=== PATIENT | male | born 1945 | race Caucasian/White ===

== ENCOUNTER 2016-10-25 15:08 | Emergency (ER) | payer MEDICARE, BC ==
[2016-10-25 15:12] VITALS: BP 162/93
--- NOTE | 2016-10-25 15:18 | EDM.PDOC ---
ED HPI GENERAL MEDICAL PROBLEM - General Chief Complaint: General Stated Complaint: abd pain Time Seen by Provider: 10/25/16 15:10 Source of Information: Reports: Patient, Old records ([facility] chart/EMR) History Limitations: Reports: No limitations - History of Present Illness INITIAL COMMENTS - FREE TEXT/NARRATIVE: Patient drove himself to the emergency room for progressive mostly left lower quadrant abdominal pain with symptoms starting about 10 days ago. He was briefly evaluated at the [facility] in [place] and subsequently referred to this facility for further evaluation with no treatment or testing done in the clinic. He apparently had a fever of 100 in that facility, however is afebrile in our emergency room at this time. He does have a known history of diverticulosis and previous benign hyperplastic colonic polyp diagnosed via colonoscopy in July 2016, however no previous history of diverticulitis. The patient did have a normal bowel movement earlier this morning. No recent history of other abdominal pain, heartburn, nausea, diarrhea, melena, gross hematochezia, or any food intolerance, including fatty foods, etc.. He did tolerate breakfast and lunch today. He does complain of 4/10 pain at this time , however this was about 7 in the past. Onset: gradual Onset Date: 10/13/16 Duration: Chronic, Constant, Getting worse Location: Reports: abdomen Quality: Reports: Sharp, Stabbing Severity: mild Improves with: Reports: None Worsens with: Reports: None Context: Reports: Other (As above) Associated Symptoms: Denies: confusion, chest pain, cough, diaphoresis, fever/ chills, malaise, nausea/vomiting, shortness of breath, weakness Treatments SUPPLY CHAIN GENERALIST: Reports: Other (see below) (None) Bilateral Lower Abdominal Pain Score (Numeric/FACES): 4 - Related Data Allergies Allergy/AdvReac Type Severity Reaction Status Date / Time No Known Allergies Allergy Verified 10/25/16 15:15 Home Meds: Home Meds Amoxicillin/Potassium Clav [Augmentin 875-125 Tablet] 1 each PO BIDMEALS #20 tablet 10/25/16 [Rx] Carbidopa/Levodopa [Carbidopa-Levodopa 25-100 Tab] 1 tab PO BEDTIME 10/25/16 [ History] Glimepiride [Amaryl] 2 mg PO WITHBREAKFAST 10/25/16 [History] Hydrochlorothiazide 25 mg PO DAILY 10/25/16 [History] Leflunomide [Arava] 20 mg PO DAILY 10/25/16 [History] Losartan [Cozaar] 25 mg PO DAILY@1800 10/25/16 [History] Potassium Chloride 10 meq PO DAILY #14 capsule.er 10/25/16 [Rx] Simvastatin [Zocor] 20 mg PO BEDTIME 10/25/16 [History] Zolpidem [Ambien] 10 mg PO BEDTIME PRN 10/25/16 [History] metroNIDAZOLE [Flagyl] 500 mg PO Q8H #30 tablet 10/25/16 [Rx] Past Medical History HEENT History: Reports: Cataract, Hard of hearing, Impaired vision, Other (see below). Denies: Allergic rhinitis, Glaucoma, Macular degeneration, Retinal detachment Other HEENT History: Glasses, bilateral presbycusis with bilateral hearing aids Cardiovascular History: Reports: High cholesterol, Hypertension. Denies: Afib, Aneurysm, Arrhythmia, Blood clots/VTE/DVT, CAD, Heart Failure, Heart murmur, [place] , Syncope Respiratory History: Reports: Sleep apnea, Other (see below). Denies: COPD, Intubation, difficult, Intubation, previous, PE, Pneumothorax Other Respiratory History: compliant with CPAP Gastrointestinal History: Reports: Chronic diarrhea, Colon polyp, Diverticulosis , Hemorrhoids, Irritable bowel syndrome, Other (see below). Denies: Bowel obstruction, Celiac disease, Cholelithiasis, Chronic constipation, Gastritis, GERD, GI bleed, Hepatitis, Helicobacter pylori, Hiatal hernia, Inflammatory bowel disease, Jaundice, Pancreatitis, PUD Other Gastrointestinal History: Diverticulosis with benign polyp of unknown type removed in July 2016 Genitourinary History: Reports: BPH, Retention, urinary, Urinary incontinence, Other (see below). Denies: Acute renal failure, Chronic renal insuffiency, Renal calculus, STD, UTI, recurrent Other Genitourinary History: BPH with PSA elevation and averaging in the 12-13s with multiple previous negative prostate biopsies as below Musculoskeletal History: Reports: Arthritis, Back pain, chronic, Osteoarthritis , RA, Other (see below). Denies: Fracture, Gout, Neck pain, chronic, Osteoporosis, SLE Other Musculoskeletal History: Scoliosis Neurological History: Reports: Other (see below). Denies: Alzheimers disease, Cerebral aneurysms, Concussion, CVA, Headaches, chronic, Head trauma, Migraines , MS, TIA Other Neuro History: Restless leg syndrome from his sleep apnea Psychiatric History: Reports: Other (see below). Denies: Abuse, victim of, ADD , ADHD, Addiction, Alzheimers disease, Dementia, Depression, Developmental delay, Psych Hospitalization(s), Psychosis, PTSD, Suicide attempt, Suicidal ideation Other Psychiatric History: Chronic insomnia Endocrine/Metabolic History: Reports: Diabetes, type II. Denies: Hypothyroidism , Osteoporosis Hematologic History: Denies: Anemia, Blood transfusion(s), Iron deficiency Immunologic History: Denies: AIDS, HIV, SLE Oncologic (Cancer) History: Denies: Basal cell carcinoma, Bladder, Colon, Hodgkin's Lymphoma, Leukemia, Lymphoma, Malignant melanoma, Non-Hodgkin's Lymphoma, Prostate, Squamous cell carcinoma Dermatologic History: Reports: None, Other (see below). Denies: Eczema, Psoriasis Other Dermatologic History: Probable actinic keratosis with no biopsy from left auricle in 2014 with cryotherapy at that time - Infectious Disease History Infectious Disease History: Reports: Chicken pox, Measles, Mumps. Denies: C- difficile, Meningitis, Mononucleosis, MRSA, Pertussis (whooping cough), Rheumatic Fever, Rubella, Scarlet fever, Shingles, TB, VRE - Past Surgical History Head Surgeries/Procedures: Reports: None HEENT Surgical History: Reports: Adenoidectomy, Cataract surgery, Tonsillectomy , Other (see below) Other HEENT Surgeries/Procedures: Bilateral cataract surgery in 2013, [place] teeth extraction x4 at age 48, tonsillectomy and adenoidectomy at age 1, Cardiovascular Surgical History: Reports: None. Denies: Pacer, Varicose, Vascular surgery Respiratory Surgical History: Reports: None. Denies: Lung Biopsies, Thoracentesis GI Surgical History: Reports: Appendectomy, Colonoscopy, EGD, Hernia, inguinal, Polypectomy, Other (see below). Denies: Cholecystectomy, Hernia, abdominal, Hernia repair/other Other GI Surgeries/Procedures: Right inguinal hernia repair in 2006, last colonoscopy in July 2016 with polypectomy of benign lesion at that time, appendectomy at age 16, EGD in about 1999 with fungal gastritis and esophagitis secondary to antibiotic therapy Male Surgical History: Reports: Prostate Biopsy, Other (see below). Denies: Circumcision, TURP-Transurethral resection of prostate, Vasectomy Other Male Surgeries/Procedures: 5 previous prostate biopsies last in 2013 Endocrine Surgical History: Reports: None Neurological Surgical History: Denies: C-Spine, Discectomy, Laminectomy, Lumbar spine, Sacral Spine, Spinal fusion, Vertebroplasty Musculoskeletal Surgical History: Reports: Carpal tunnel, Other (see below). Denies: Amputation, Arthroscopic knee, Arthroscopic procedure, Ganglion cyst, ORIF Other Musculoskeletal Surgeries/Procedures:: Bilateral carpal tunnel release in Oncologic Surgical History: Reports: None Dermatological Surgical History: Reports: Other (see below) Other Dermatological Surgeries/Procedures: Left auricular cryotherapy as above - Past Imaging History Past Imaging History: Reports: CAT scan (CT of the facial bones and sinuses on ), Ultrasound (Last prostate ultrasound in 2015, right upper quadrant abdominal ultrasound on 03/24/10) Social & Family History - Family History Respiratory: Reports: COPD, Other (see below) Other Respiratory Family Hisory: Father with fatal COPD likely secondary to tobacco use at age 82 Oncologic: Reports: Colon, Other (see below) Other Oncologic Family History: Father with colon cancer in his 60s - Tobacco Use Smoking Status *Q: Former Smoker Tobacco Use Within Last Twelve Months: No Years of Tobacco use: 15 Packs/Tins Daily: 1 (Smoked between ages 15 and 31) Month Tobacco Last Used: 1975 Smoking Cessation Information Provided To Patient: No Second Hand Smoke Exposure: No Second Hand Smoke Education Provided: No - Caffeine Use Caffeine Use: Reports: Coffee (12 Cups per day), Soda (1 soda per day). Denies : Energy drinks - Alcohol Use Alcohol Use History: Yes Days Per Week of Alcohol Use: 2 (No previous DWIs, problems with alcohol abuse, etc.) Number of Drinks Per Day: 1 (Usually mixed drinks) Total Drinks Per Week: 2 Alcohol Use Frequency: Socially - Recreational Drug Use Recreational Drug Use: No Drug Use in Last 12 Months: No Recreational Drug Type: Denies: Amphetamines (Speed), Cocaine, Heroin, Inhalants (Glues, Solvents, Aerosols), LSD (Acid), Marijuana/Hashish, Methamphetamine, Morphine - Living Situation & Occupation Living situation: Reports: (1965, 3 children), with family (With ) 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 Denies: malaise , fatigue, diaphoresis, decreased appetite, weight loss, weight gain HEENT: Reports: Glasses, Hearing loss (Stable). Denies: Dental pain, Ear pain, Eye discharge, Eye pain, Sinus problem, Throat pain, Throat swelling, Vertigo, Vision change Respiratory: Denies: Shortness of Breath, Wheezing, Pleuritic Chest Pain, Cough Cardiovascular: Reports: No symptoms. Denies: Chest pain, Blood pressure problem, Claudication, Dyspnea on exertion, Edema, Lightheadedness, Orthopnea, Palpitations, PND, Syncope Endocrine: Reports: high glucose (As above) GI/Abdominal: Reports: Abdominal pain. Denies: Anorexia, Black stool, Bloody stool, Constipation, Diarrhea, Decreased appetite, Distension, Flatus, Hematemesis, Melena, Nausea, Stool incontinence, Vomiting : Reports: incontinence (Stable). Denies: discharge, dysuria, flank pain, frequency, hematuria, pain, urgency, urinary retention Musculoskeletal: Reports: no symptoms. Denies: neck pain, shoulder pain, arm pain, back pain, leg pain Skin: Reports: no symptoms. Denies: jaundice, diaphoresis, bruising, rash, wound Neurological: Reports: No Symptoms. Denies: Confusion, Dizziness, Headache, Numbness, Paresthesia, Tingling, Weakness Psychiatric: Reports: No symptoms. Denies: Agitation, Anxiety, Confusion, Depression, Hallucinations Hematologic/Lymphatic: Reports: no symptoms Immunologic: Reports: no symptoms ED EXAM, GENERAL - Physical Exam Exam: See Below Exam Limited By: No limitations General Appearance: alert, WD/WN, no apparent distress Eye Exam: bilateral eye: EOMI, normal inspection (No nystagmus), PERRL Ears: normal external exam, normal canal, normal TMs, hearing loss (Severe bilateral presbycusis with patient not wearing his hearing aids today) Nose: normal inspection, normal mucosa, no blood Throat/Mouth: Normal inspection, Normal lips, Normal teeth, Normal gums, Normal oropharynx, Normal voice, No airway compromise. No: Dysphagia, Inflammation Head: atraumatic, normocephalic. No: facial swelling, facial tenderness, sinus tenderness Neck: normal inspection, supple, non-tender, full range of motion, carotid bruit (Borderline mild bilateral). No: lymphadenopathy (L), lymphadenopathy (R) , thyromegaly Respiratory/Chest: no respiratory distress, lungs clear, normal breath sounds, no accessory muscle use, chest non-tender Cardiovascular: normal peripheral pulses, regular rate, rhythm, no edema, no gallop, no JVD, no murmur, no rub. No: gallop/S3, gallop/S4, friction rub Peripheral Pulses: 4+: radial (L), radial (R), dorsalis pedis (L), dorsalis pedis (R) GI/Abdominal: normal bowel sounds, no organomegaly, no distention, no abnormal bruit, no mass, rebound (Borderline), tender (Mild left lower quadrant palpation pain). No: guarding (Male) Exam: Deferred Back Exam: normal inspection, full range of motion. No: CVA tenderness (L), CVA tenderness (R), muscle spasm Extremities: normal inspection, normal range of motion, non-tender, no pedal edema, normal capillary refill. No: Jhonathan's Sign Neurological: alert, oriented, CN II-XII intact, normal cognition, normal gait, normal reflexes (Negative Babinski's), no motor/sensory deficits Psychiatric: normal affect, normal mood Skin Exam: Warm, Dry, Intact, Normal color, No rash. No: Diaphoretic, Jaundice , Wound/incision Lymphatic: no adenopathy Course - Vital Signs Last Recorded V/S: Last Vital Signs Temp 36.9 C 10/25/16 15:11 Pulse 97 10/25/16 15:11 Resp 16 10/25/16 15:11 BP 162/93 H 10/25/16 15:11 Pulse Ox 95 10/25/16 15:11 Vital Signs - 24 hr 10/25/16 15:11 Temperature [ 36.9 C Oral] Pulse, 97 Peripheral [ Right Pulse Oximetry] Respiratory 16 Rate Blood Pressure 162/93 H [Left Upper Arm ] O2 Sat by Pulse 95 Oximetry - Orders/Labs/Meds Orders: Active Orders 24 hr Category Date Time Status Peripheral IV Care [RC] . DIRECTED Care 10/25/16 15:20 Active Abdomen Series w Chest 1V [CR] Stat Exams 10/25/16 15:18 Taken CULTURE BLOOD [BC] Stat Lab 10/25/16 15:35 Received CULTURE BLOOD [BC] Stat Lab 10/25/16 15:47 Received CULTURE URINE [RM] Routine Lab 10/25/16 15:35 Received Sodium Chloride 0.9% [Saline Flush] Med 10/25/16 15:20 Active 10 ml FLUSH ASDIRECTED PRN Blood Culture x2 Reflex Set [OM.PC] Urgent Oth 10/25/16 15:18 Ordered Peripheral IV Insertion Adult [OM.PC] Routine Oth 10/25/16 15:19 Ordered Medication Orders Sodium Chloride (Saline Flush) 10 ml FLUSH ASDIRECTED PRN PRN Reason: Keep Vein Open Last Admin: 10/25/16 16:50 Dose: 10 ml Admin: 10/25/16 15:45 Dose: 10 ml Labs: Laboratory Tests 10/25/16 10/25/16 10/25/16 Range/Units 15:35 15:47 15:47 WBC 8.4 (4.0-10.2) K/uL RBC 4.71 (4.33-5.41) M/uL Hgb 13.7 (13.1-16.8) g/dL Hct 41.9 (39.0-49.0) % MCV 89.0 (84.0-98.0) fL MCH 29.1 (28.2-33.3) pg MCHC 32.7 (31.7-36.0) g/dL RDW 14.7 H (11.2-14.1) % Plt Count 189 (150-350) K/uL Neut % (Auto) 69.5 (45.0-80.0) % Lymph % (Auto) 19.6 (10.0-50.0) % [facility] % (Auto) 7.8 (2.0-14.0) % Eos % (Auto) 2.3 (0.0-5.0) % Baso % (Auto) 0.8 (0.0-2.0) % Neut # (Auto) 5.81 (1.40-7.00) K/uL Lymph # (Auto) 1.64 (0.50-3.50) K/uL [facility] # (Auto) 0.65 (0.00-1.00) K/uL Eos # (Auto) 0.19 (0.00-0.50) K/uL Baso # (Auto) 0.07 (0.00-0.20) K/uL PT (9.8-11.7) SEC INR APTT (23.5-30.0) SEC Sodium 138 (136-145) mmol/L Potassium 3.3 L (3.5-5.1) mmol/L Chloride 100 (98-107) mmol/L Carbon Dioxide 28.7 (21.0-32.0) mmol/L BUN 17 (7-18) mg/dL Creatinine 0.98 (0.51-1.17) mg/dL Est Cr Clr Drug Dosing TNP Estimated GFR (MDRD) > 60 mL/min Glucose 231 H (74-106) mg/dL Hemoglobin A1c (4.3-5.7) % Lactic Acid (0.4-2.0) mmol/L Uric Acid 3.6 (2.6-7.2) mg/dL Calcium 9.4 (8.5-10.1) mg/dL Magnesium 2.1 (1.8-2.4) mg/dL Total Bilirubin 0.4 (0.2-1.0) mg/dL AST 11 L (15-37) U/L ALT 27 (12-78) U/L Alkaline Phosphatase 84 (46-116) IU/L Total Protein 6.8 (6.4-8.2) g/dL Albumin 3.6 (3.4-5.0) g/dL Amylase 26 (25-115) U/L Lipase 109 (73-393) U/L Specimen Type Urincc Urine Color Yellow Urine Appearance Clear Urine pH 6.0 (5.0-9.0) Ur Specific Valders 1.015 (1.005-1.030) Urine Protein Negative (NEGATIVE) mg/dL Urine Glucose (UA) 500 H (NEGATIVE) mg/dL Urine Ketones Negative (NEGATIVE) mg/dL Urine Occult Blood Trace-lysed H (NEGATIVE) Urine Nitrite Negative (NEGATIVE) Urine Bilirubin Negative (NEGATIVE) Urine Urobilinogen 0.2 (0.2-1.0) E.U./dL Ur Leukocyte Esterase Negative (NEGATIVE) Urine RBC 0-5 /HPF Urine WBC 0-5 /HPF Ur Epithelial Cells Not seen /LPF Urine Bacteria Not seen (NONE TO FEW) /HPF H. pylori IgG Antibody (NEGATIVE) 10/25/16 10/25/16 10/25/16 Range/Units 15:47 15:47 15:47 WBC (4.0-10.2) K/uL RBC (4.33-5.41) M/uL Hgb (13.1-16.8) g/dL Hct (39.0-49.0) % MCV (84.0-98.0) fL MCH (28.2-33.3) pg MCHC (31.7-36.0) g/dL RDW (11.2-14.1) % Plt Count (150-350) K/uL Neut % (Auto) (45.0-80.0) % Lymph % (Auto) (10.0-50.0) % [facility] % (Auto) (2.0-14.0) % Eos % (Auto) (0.0-5.0) % Baso % (Auto) (0.0-2.0) % Neut # (Auto) (1.40-7.00) K/uL Lymph # (Auto) (0.50-3.50) K/uL [facility] # (Auto) (0.00-1.00) K/uL Eos # (Auto) (0.00-0.50) K/uL Baso # (Auto) (0.00-0.20) K/uL PT 11.2 (9.8-11.7) SEC INR 1.0 APTT 30.6 H (23.5-30.0) SEC Sodium (136-145) mmol/L Potassium (3.5-5.1) mmol/L Chloride (98-107) mmol/L Carbon Dioxide (21.0-32.0) mmol/L BUN (7-18) mg/dL Creatinine (0.51-1.17) mg/dL Est Cr Clr Drug Dosing Estimated GFR (MDRD) mL/min Glucose (74-106) mg/dL Hemoglobin A1c 7.9 H (4.3-5.7) % Lactic Acid 1.1 (0.4-2.0) mmol/L Uric Acid (2.6-7.2) mg/dL Calcium (8.5-10.1) mg/dL Magnesium (1.8-2.4) mg/dL Total Bilirubin (0.2-1.0) mg/dL AST (15-37) U/L ALT (12-78) U/L Alkaline Phosphatase (46-116) IU/L Total Protein (6.4-8.2) g/dL Albumin (3.4-5.0) g/dL Amylase (25-115) U/L Lipase (73-393) U/L Specimen Type Urine Color Urine Appearance Urine pH (5.0-9.0) Ur Specific Val[place] (1.005-1.030) Urine Protein (NEGATIVE) mg/dL Urine Glucose (UA) (NEGATIVE) mg/dL Urine Ketones (NEGATIVE) mg/dL Urine Occult Blood (NEGATIVE) Urine Nitrite (NEGATIVE) Urine Bilirubin (NEGATIVE) Urine Urobilinogen (0.2-1.0) E.U./dL Ur Leukocyte Esterase (NEGATIVE) Urine RBC /HPF Urine WBC /HPF Ur Epithelial Cells /LPF Urine Bacteria (NONE TO FEW) /HPF H. pylori IgG Antibody (NEGATIVE) 10/25/16 Range/Units 15:47 WBC (4.0-10.2) K/uL RBC (4.33-5.41) M/uL Hgb (13.1-16.8) g/dL Hct (39.0-49.0) % MCV (84.0-98.0) fL MCH (28.2-33.3) pg MCHC (31.7-36.0) g/dL RDW (11.2-14.1) % Plt Count (150-350) K/uL Neut % (Auto) (45.0-80.0) % Lymph % (Auto) (10.0-50.0) % [facility] % (Auto) (2.0-14.0) % Eos % (Auto) (0.0-5.0) % Baso % (Auto) (0.0-2.0) % Neut # (Auto) (1.40-7.00) K/uL Lymph # (Auto) (0.50-3.50) K/uL [facility] # (Auto) (0.00-1.00) K/uL Eos # (Auto) (0.00-0.50) K/uL Baso # (Auto) (0.00-0.20) K/uL PT (9.8-11.7) SEC INR APTT (23.5-30.0) SEC Sodium (136-145) mmol/L Potassium (3.5-5.1) mmol/L Chloride (98-107) mmol/L Carbon Dioxide (21.0-32.0) mmol/L BUN (7-18) mg/dL Creatinine (0.51-1.17) mg/dL Est Cr Clr Drug Dosing Estimated GFR (MDRD) mL/min Glucose (74-106) mg/dL Hemoglobin A1c (4.3-5.7) % Lactic Acid (0.4-2.0) mmol/L Uric Acid (2.6-7.2) mg/dL Calcium (8.5-10.1) mg/dL Magnesium (1.8-2.4) mg/dL Total Bilirubin (0.2-1.0) mg/dL AST (15-37) U/L ALT (12-78) U/L Alkaline Phosphatase (46-116) IU/L Total Protein (6.4-8.2) g/dL Albumin (3.4-5.0) g/dL Amylase (25-115) U/L Lipase (73-393) U/L Specimen Type Urine Color Urine Appearance Urine pH (5.0-9.0) Ur Specific Valders (1.005-1.030) Urine Protein (NEGATIVE) mg/dL Urine Glucose (UA) (NEGATIVE) mg/dL Urine Ketones (NEGATIVE) mg/dL Urine Occult Blood (NEGATIVE) Urine Nitrite (NEGATIVE) Urine Bilirubin (NEGATIVE) Urine Urobilinogen (0.2-1.0) E.U./dL Ur Leukocyte Esterase (NEGATIVE) Urine RBC /HPF Urine WBC /HPF Ur Epithelial Cells /LPF Urine Bacteria (NONE TO FEW) /HPF H. pylori IgG Antibody Negative (NEGATIVE) Urine culture and blood cultures x2 are pending Microbiology 10/25/16 16:24 Stool Occult Blood (SAMANTHA) - Final Stool / Feces NEGATIVE OCCULT BLOOD Meds: Medications Generic Name Dose Route Start Last Admin Trade Name Freq PRN Reason Stop Dose Admin Sodium Chloride 10 ml 10/25/16 15:20 10/25/16 16:50 Saline Flush FLUSH 10 ml ASDIRECTED PRN Administration Keep Vein Open Discontinued Medications Generic Name Dose Route Start Last Admin Trade Name Freq PRN Reason Stop Dose Admin Famotidine 40 mg 10/25/16 15:20 10/25/16 15:44 Pepcid IVPUSH 10/25/16 15:21 40 mg ONETIME ONE Administration Ceftriaxone Sodium 1 gm/ 100 mls @ 200 mls/hr 10/25/16 16:22 10/25/16 16:50 Sodium Chloride IV 10/25/16 16:51 200 mls/hr ONETIME ONE Administration Metronidazole 500 mg 10/25/16 16:22 10/25/16 16:50 Flagyl PO 10/25/16 16:23 500 mg ONETIME ONE Administration Pantoprazole Sodium 40 mg 10/25/16 15:20 10/25/16 15:44 Protonix Iv IVPUSH 10/25/16 15:21 40 mg ONETIME ONE Administration - Radiology Interpretation Free Text/Narrative:: Acute abdominal x-ray shows evidence of moderate COPD changes with possible pulmonary hypertension, however no pulmonary infiltrates, cardiomegaly, CHF, free air, ileus, obstruction, fluid levels, intra-abdominal calcifications, etc. Mild to moderate stool with nonspecific bowel gaseous pattern. Mild aortic valve calcification and prominence of the proximal aortic arch. Moderate osteoarthritic changes including mild to moderate scoliosis Departure - Departure Time of Disposition: 17:50 Disposition: Home, Self-Care 01 Preliminary Cause of *Q: sepsis & multi system organ failure Condition: good Clinical Impression: COPD (chronic obstructive pulmonary disease) Abdominal pain Qualifiers: Abdominal location: left lower quadrant Qualified Code(s): R10.32 - Left lower quadrant pain Osteoarthritis Qualifiers: Osteoarthritis location: multiple joints Osteoarthritis type: primary Qualified Code(s): M15.0 - Primary generalized (osteo)arthritis Diverticulosis Qualifiers: Diverticulosis site: diverticulosis of large intestine Diverticulosis bleeding : diverticulosis with bleeding Qualified Code(s): K57.31 - Diverticulosis of large intestine without perforation or abscess with bleeding Hypertension Qualifiers: Hypertension type: essential hypertension Qualified Code(s): I10 - Essential ( primary) hypertension Hyperlipidemia Qualifiers: Hyperlipidemia type: unspecified Qualified Code(s): E78.5 - Hyperlipidemia, unspecified Presbycusis Qualifiers: Laterality: bilateral Qualified Code(s): H91.13 - Presbycusis, bilateral Prescriptions: Amoxicillin/Potassium Clav [Augmentin 875-125 Tablet] 1 each PO BIDMEALS #20 tablet Potassium Chloride 10 meq PO DAILY #14 capsule.er metroNIDAZOLE [Flagyl] 500 mg PO Q8H #30 tablet Instructions: Diverticulitis, [id number], Hypokalemia Referrals: PCP,None [Primary Care Provider] - Forms: ED Department Discharge Additional Instructions: 1. Followup with your regular provider in 7 days as directed for reevaluation and recommended repeat CBC and comprehensive metabolic panel. 2. [place] diet including encouragement of oral fluids such as sports drinks, etc. for 24-48 hours as directed. Advance to strict low-fat, low-cholesterol, diabetic, diverticulosis diet as tolerated thereafter. 3. Continue to observe your blood pressures closely through your regular provider - Problem List & Annotations (1) Abdominal pain SNOMED Code(s): 26596275 Code(s): R10.9 - UNSPECIFIED ABDOMINAL PAIN Status: Acute Priority: High Current Visit: Yes Onset Date: ~10/13/16 Annotation/Comment:: Probable beginning mild diverticulitis with borderline peritonitis. Initial dose of Flagyl given in the emergency room orally with additional IV Rocephin as above. Close followup by regular provider. Note recent colonoscopy in July 2016. Further GI workup and/or referral, including possible CT scan, etc. depending on his clinical course. No leukocytosis currently. H. pylori was negative. IV Protonix and IV Pepcid given as GI prophylaxis Qualifiers: Abdominal location: left lower quadrant Qualified Code(s): R10.32 - Left lower quadrant pain (2) Diverticulosis SNOMED Code(s): 623556700 Code(s): K57.90 - DVRTCLOS OF INTEST, PART UNSP, W/O PERF OR ABSCESS W/O BLEED Status: Chronic Priority: Medium Current Visit: Yes Annotation/ Comment:: As above Qualifiers: Diverticulosis site: diverticulosis of large intestine Diverticulosis bleeding: diverticulosis with bleeding Qualified Code(s): K57.31 - Diverticulosis of large intestine without perforation or abscess with bleeding (3) Hypokalemia SNOMED Code(s): 48127638 Code(s): E87.6 - HYPOKALEMIA Status: Acute Priority: Medium Current Visit: Yes Onset Date: 10/25/16 Annotation/Comment:: Note current hydrochlorothiazide therapy. Initiate low-dose potassium chloride supplementation with close followup by regular provider as per discharge instructions (4) Osteoarthritis SNOMED Code(s): 145506459 Code(s): M19.90 - UNSPECIFIED OSTEOARTHRITIS, UNSPECIFIED SITE Status: Chronic Priority: Medium Current Visit: Yes Annotation/Comment:: Stable by history with additional history of rheumatoid arthritis. Patient is followed by a telecommunications professional Qualifiers: Osteoarthritis location: multiple joints Osteoarthritis type: primary Qualified Code(s): M15.0 - Primary generalized (osteo)arthritis (5) Hypertension SNOMED Code(s): 16783298 Code(s): I10 - ESSENTIAL (PRIMARY) HYPERTENSION Status: Chronic Priority : Medium Current Visit: Yes Annotation/Comment:: Blood pressure somewhat elevated in the emergency room secondary to discomfort. Continue to observe closely by his regular provider Qualifiers: Hypertension type: essential hypertension Qualified Code(s): I10 - Essential (primary) hypertension (6) Hyperlipidemia SNOMED Code(s): 35844919 Code(s): E78.5 - HYPERLIPIDEMIA, UNSPECIFIED Status: Chronic Priority: Medium Current Visit: Yes Annotation/Comment:: Currently under therapy Qualifiers: Hyperlipidemia type: unspecified Qualified Code(s): E78.5 - Hyperlipidemia , unspecified (7) Presbycusis SNOMED Code(s): 94473270 Code(s): H91.10 - PRESBYCUSIS, UNSPECIFIED EAR Status: Chronic Priority: Medium Current Visit: Yes Annotation/Comment:: No hearings aides today Qualifiers: Laterality: bilateral Qualified Code(s): H91.13 - Presbycusis, bilateral (8) COPD (chronic obstructive pulmonary disease) SNOMED Code(s): 60680500 Code(s): J44.9 - CHRONIC OBSTRUCTIVE PULMONARY DISEASE, UNSPECIFIED Status : Chronic Priority: Medium Current Visit: Yes Onset Date: 10/25/16 Annotation/Comment:: COPD by today's chest x-ray with no current medical therapy. Continue to observe closely by his regular provider with consideration of PFTs. Note history of sleep apnea and restless leg syndrome Qualifiers: COPD type: emphysema - Problem List Review Problem List Initiated/Reviewed/Updated: Yes - My Orders Last 24 Hours: My Active Orders 10/25/16 15:18 Abdomen Series w Chest 1V [CR] Stat Blood Culture x2 Reflex Set [OM.PC] Urgent 10/25/16 15:19 Peripheral IV Insertion Adult [OM.PC] Routine 10/25/16 15:20 Peripheral IV Care [RC] . DIRECTED Sodium Chloride 0.9% [Saline Flush] 10 ml FLUSH ASDIRECTED PRN 10/25/16 15:35 CULTURE BLOOD [BC] Stat CULTURE URINE [RM] Routine 10/25/16 15:47 CULTURE BLOOD [BC] Stat - Assessment/Plan Last 24 Hours: My Active Orders 10/25/16 15:18 Abdomen Series w Chest 1V [CR] Stat Blood Culture x2 Reflex Set [OM.PC] Urgent 10/25/16 15:19 Peripheral IV Insertion Adult [OM.PC] Routine 10/25/16 15:20 Peripheral IV Care [RC] . DIRECTED Sodium Chloride 0.9% [Saline Flush] 10 ml FLUSH ASDIRECTED PRN 10/25/16 15:35 CULTURE BLOOD [BC] Stat CULTURE URINE [RM] Routine 10/25/16 15:47 CULTURE BLOOD [BC] Stat Assessment:: As above Plan: As above. Extensive precautions were given to the patient, who is in agreement with the treatment plan. See Patient Instructions for further treatment and plan. Note that the patient's was updated by telephone concerning patient' s diagnosis, treatment plan, followup, etc. prior to the patient leaving the emergency room
[2016-10-25] MEDS ORDERED: Pantoprazole 40 MG Vial IVPUSH ONE (15:20)
[2016-10-25] MEDS ORDERED: Famotidine 20 MG/2 ML SDV IVPUSH ONE (15:20)
[2016-10-25] MEDS: Sodium Chloride 0.9% 10 ML Syringe FLUSH PRN ×2 (15:45→16:50)
[2016-10-25 16:09] LABS: CHLORIDE,CL 100 mmol/L (98-107); SODIUM,NA 138 mmol/L (136-145)
[2016-10-25] MEDS ORDERED: metroNIDAZOLE 500 MG Tab PO ONE (16:22)
[2016-10-25] MEDS ORDERED: cefTRIAXone 1 GM in Sodium Chloride 0.9% 100 ML IV ONE (16:22)
== END 2016-10-25 17:50 | disposition home or self-care (01) ==
LOC: LL.ED 15:08
DX: R10.32 Left lower quadrant pain (principal); I10 Essential (primary) hypertension; E78.00 Pure hypercholesterolemia, unspecified; G47.30 Sleep apnea, unspecified; K58.0 Irritable bowel syndrome with diarrhea; N40.0 Benign prostatic hyperplasia without lower urinary tract symptoms; M19.90 Unspecified osteoarthritis, unspecified site; M06.9 Rheumatoid arthritis, unspecified; G25.81 Restless legs syndrome; Z87.891 Personal history of nicotine dependence; J44.9 Chronic obstructive pulmonary disease, unspecified; K57.31 Diverticulosis of large intestine without perforation or abscess with bleeding; R78.5 Finding of other psychotropic drug in blood; H91.13 Presbycusis, bilateral
CPT/HCPCS: 36415; 74022; 80053; 81001; 82150; 82272; 83036; 83605; 83690; 83735; 84550; 85025; 85610; 85730; 86318; 87040; 87086; 96365; 96375; 99284; A9270; C9113; J0696; J7050; 99283; S0028